=== PATIENT | female | born 1950 | race Caucasian/White ===

== ENCOUNTER → 2017-01-29 | Outpatient (CLI) | payer MEDICARE, BC ==
[~2017-01-29] MED LIST: ATEN25TA PO; COZA50TA PO; HYDR25TA5 PO
[2017-01-29 14:00] LABS: BASOPHIL % 0.5 % (0.0-2.0); EOSINOPHIL # 0.1 TH/MM3 (0-0.4); EOSINOPHIL % 1.5 % (0.0-4.0); HEMATOCRIT 42.5 % (35.0-46.0); HEMO FLAGS DIFF FINAL; LYMPH % 28.6 % (9.0-44.0); LYMPHOCYTE # 2.3 TH/MM3 (1.0-4.8); MEAN CELL VOLUME 88.3 FL (80.0-100.0); MEAN CORPUSCULAR HEMOGLOBIN 30.8 PG (27.0-34.0); MEAN CORPUSCULAR HGB CONC 34.9 % (32.0-36.0); MONO % 6.7 % (0.0-8.0); NEUT % 62.7 % (16.0-70.0); PLATELET COUNT 244 TH/MM3 (150-450); RED BLOOD COUNT 4.81 MIL/MM3 (4.00-5.30); RED CELL DISTRIBUTION WIDTH 12.9 % (11.6-17.2); WHITE BLOOD COUNT 7.9 TH/MM3 (4.0-11.0)
[2017-01-29 14:05] LABS: BLOOD, URINE NEG (NEG); COMMENT (UR) CULT NOT INDICATED; CULTURE IF INDICATED CULT NOT INDICATED; GLUCOSE,URINE NEG (NEG); KETONE, URINE NEG (NEG); MUCUS URINE FEW /lpf (OCC); NITRITE,URINE NEG (NEG); URINE COLOR LIGHT-YELLOW (YELLW/STRAW)
--- NOTE | 2017-01-30 11:49 | EKG ---
Date Performed: 01/29/2017 Time Performed: 13:29:08 PTAGE: 66 years EKG: SINUS BRADYCARDIA INCOMPLETE RIGHT BUNDLE BRANCH BLOCK BORDERLINE ECG NO PREVIOUS TRACING DOCTOR: Florencio Garsia Interpretating Date/Time 01/30/2017 11:43:31
== END ==
LOC: CPRE 12:41
PROVIDERS: ATTEND Obstetrics & Gynecology
DX: Z01.810 Encounter for preprocedural cardiovascular examination (principal); Z01.812 Encounter for preprocedural laboratory examination; D25.9 Leiomyoma of uterus, unspecified; R10.2 Pelvic and perineal pain; R94.31 Abnormal electrocardiogram [ECG] [EKG]
CPT/HCPCS: 36415; 81001; 85025; 93005

== ENCOUNTER 2017-01-31 10:05 | Observation (INO) | payer MEDICARE, BC ==
[~2017-01-31] VITALS: Ht 162.6 cm; Wt 81.1 kg
--- NOTE | 2017-01-31 09:22 | MH ---
cc: TEZ FIGUEROA. DATE OF ADMISSION: 01/31/2017 ADMITTING DIAGNOSIS Pelvic pressure, pelvic pain, uterine fibroids. HISTORY OF PRESENT ILLNESS The patient is a 66-year-old white female, para 2-0-0-2 with an LMP in 1998. She was referred to me on 11/21/[address] Hagan for gynecological evaluation, history of fibroids and pelvic pain and pressure. Her Pap smear was normal. Pelvic ultrasound on 12/01/16 shows multiple fibroids, right ovary was normal, the left could not be seen. There was no free fluid. She is now admitted for hysterectomy. PAST MEDICAL HISTORY Previous surgery, she had a bilateral tubal interruption 1977. She had repair of a right ankle fracture 1995. MEDICATIONS 1. Losartan. 2. Hydrochlorothiazide. 3. Atenolol. 4. Vitamins. ALLERGIES None. TRANSFUSIONS None. OBSTETRICAL HISTORY Vaginal delivery. 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 30+ years. [employer] [place], [place]. FAMILY HISTORY Her family history is noncontributory. PHYSICAL EXAMINATION GENERAL: Well-nourished, well-developed white female. VITAL SIGNS: Vital signs stable. HEENT: Exam is normal. CHEST: Chest is clear. HEART: Regular rate. BREASTS: Breasts are symmetrical. ABDOMEN: Abdomen is benign. PELVIC EXAMINATION: Normal external genitalia and BUS. Vagina is normal. Cervix normal. Uterus is enlarged about 12 to 14 weeks' size. Adnexa nonpalpable. ASSESSMENT As above. PLAN She is now admitted for laparoscopy with planned LASH/BSO, possible EDITH/BSO. While in the office I explained the procedures, the risks, benefits and complications and the patient would like to proceed. MD JACOB Mello/RAMEZ /9:14 PM /9:03 AM
[2017-01-31 11:00] VITALS: BP 187/93; PULSE 50; RESP 18; TEMP 97.8; O2SAT 96
[2017-01-31] MEDS ORDERED: ceFAZolin 2 GM PREMIX 50 ML ONE (11:11)
[2017-01-31] MEDS ORDERED: ACETAMINOPHEN 1000 MG/100 ML VIAL IV ONE (11:12)
[2017-01-31] MEDS ORDERED: INSULIN HUMAN REGULAR 1,000 UNITS/10 ML VIAL SQ PRN (11:15)
[2017-01-31] MEDS ORDERED: LACTATED RINGER'S 1000 ML IV PRN (11:15)
[2017-01-31] MEDS ORDERED: SODIUM CHLORID 0.9% 500 ML IV PRN (11:15)
[2017-01-31] MEDS ORDERED: CHLORHEXIDINE GLUCONATE 2 % 1 PACK (2 CLOTHS) TOPICAL PRN (11:15)
[2017-01-31] MEDS ORDERED: METOPROLOL TARTRATE 25 MG TAB PO PRN (11:15)
[2017-01-31] MEDS ORDERED: POVIDONE IODINE 5% (ANTISEPSIS KIT) 4 APPLICATIONS EACH NARE PRN (11:15)
[2017-01-31] MEDS ORDERED: ACETAMINOPHEN 1000 MG/100 ML VIAL IV SCH (11:30)
[2017-01-31] MEDS ORDERED: ceFAZolin 2 GM PREMIX 50 ML IV SCH (11:30)
[2017-01-31] MEDS: D5-1/2 NS + KCL 20 MEQ INJ 1,000 ML IV SCH ×2 (13:59→22:49)
[2017-01-31] MEDS ORDERED: ONDANSETRON HCL 4 MG/2 ML VIAL IV PRN (14:00)
[2017-01-31] MEDS ORDERED: ONDANSETRON ODT 4 MG TAB PO PRN (14:00)
[2017-01-31] MEDS ORDERED: hydrOXYzine PAMOATE 25 MG CAP PO PRN (14:00)
[2017-01-31] MEDS ORDERED: METOCLOPRAMIDE HCL 10 MG/2 ML VIAL IV PUSH PRN (14:00)
[2017-01-31] MEDS ORDERED: PROMETHAZINE HCL 25 MG TAB PO PRN (14:00)
[2017-01-31] MEDS ORDERED: HYDROmorphone HCL PF 1 MG/ML VIAL IV PRN (14:00)
[2017-01-31] MEDS ORDERED: SODIUM CHLORIDE 0.9% FLUSH 5 ML FLUSH FLUSH PRN (14:00)
[2017-01-31] MEDS ORDERED: ZOLPIDEM TARTRATE 5 MG TAB PO PRN (14:00)
[2017-01-31] MEDS ORDERED: D5-1/2 NS + KCL 20 MEQ INJ 1,000 ML ONE (14:21)
[2017-01-31] MEDS ORDERED: MIDAZOLAM HCL 2 MG/2 ML VIAL ONE (14:32)
[2017-01-31] MEDS ORDERED: fentaNYL CITRATE 250 MCG/5 ML AMP ONE (14:33)
[2017-01-31] MEDS: ACETAMINOPHEN 1000 MG/100 ML VIAL IV SCH ×2 (14:44→22:48)
[2017-01-31] MEDS: KETOROLAC TROMETHAMINE 30 MG/ML (IVP) VIAL IVP SCH ×2 (14:45→20:41)
[2017-01-31] MEDS ORDERED: DO NOT ADM ANY ANTICOAGULANT DRUGS PRN (15:00)
[2017-01-31] MEDS ORDERED: PROPOFOL 200 MG/20 ML AMP IV ONE (15:03)
[2017-01-31] MEDS ORDERED: ePHEDrine/NS 25 MG/5 ML SYR IV ONE (15:03)
[2017-01-31] MEDS ORDERED: KETOROLAC TROMETHAMINE 60 MG/2 ML (IM) VIAL IM ONE (15:03)
[2017-01-31] MEDS ORDERED: ONDANSETRON HCL 4 MG/2 ML VIAL IV PUSH ONE (15:04)
[2017-01-31] MEDS ORDERED: *morphine SULFATE 8 MG/ML PERIprocedure ONLY ONE (15:36)
[2017-01-31 17:05] LABS: HEMATOCRIT 39.4 % (35.0-46.0); REVIEW FLAG FINAL
[2017-01-31 17:30] VITALS: BP 135/67; PULSE 53; RESP 20; TEMP 96.6; O2SAT 97
[2017-01-31] MEDS: DOCUSATE SODIUM 100 MG CAP PO SCH ×2 (18:38→20:41)
[2017-01-31 20:00] VITALS: BP 115/66; PULSE 50; RESP 17; TEMP 96.5; O2SAT 94
[2017-01-31 20:16] VITALS: O2SAT 96
[2017-01-31] MEDS: SODIUM CHLORIDE 0.9% FLUSH 5 ML FLUSH FLUSH SCH (20:41)
[2017-02-01] VITALS: BP 118/69; PULSE 51; RESP 18; TEMP 96.7; O2SAT 95
[2017-02-01] MEDS: KETOROLAC TROMETHAMINE 30 MG/ML (IVP) VIAL IVP SCH ×2 (03:41→08:26)
[2017-02-01 04:00] VITALS: BP 136/73; PULSE 58; RESP 18; TEMP 97.6; O2SAT 96
[2017-02-01] MEDS: ACETAMINOPHEN 1000 MG/100 ML VIAL IV SCH (06:22)
[2017-02-01 07:00] LABS: BASOPHIL % 0.6 % (0.0-2.0); EOSINOPHIL # 0.1 TH/MM3 (0-0.4); EOSINOPHIL % 2.4 % (0.0-4.0); HEMATOCRIT 37.2 % (35.0-46.0); HEMO FLAGS DIFF FINAL; LYMPH % 21.7 % (9.0-44.0); LYMPHOCYTE # 1.3 TH/MM3 (1.0-4.8); MEAN CELL VOLUME 89.1 FL (80.0-100.0); MEAN CORPUSCULAR HEMOGLOBIN 29.6 PG (27.0-34.0); MEAN CORPUSCULAR HGB CONC 33.2 % (32.0-36.0); MONO % 8.3 % (0.0-8.0); PLATELET COUNT 165 TH/MM3 (150-450); RED BLOOD COUNT 4.17 MIL/MM3 (4.00-5.30); RED CELL DISTRIBUTION WIDTH 12.6 % (11.6-17.2)
[2017-02-01 07:32] LABS: BICARBONATE 28.9 MEQ/L (21.0-32.0); POTASSIUM 4.1 MEQ/L (3.5-5.1)
[2017-02-01 08:00] VITALS: BP 142/73; PULSE 53; RESP 16; TEMP 97.1; O2SAT 99
[2017-02-01] MEDS: DOCUSATE SODIUM 100 MG CAP PO SCH (08:26)
[2017-02-01] MEDS: SODIUM CHLORIDE 0.9% FLUSH 5 ML FLUSH FLUSH SCH (08:30)
--- NOTE | 2017-02-01 08:36 | HHI.DCPOC ---
Discharge Care Plan Report Symptoms to Your Doctor -Temperate above 100.5 degrees -Redness, of incision or excessive or foul smelling drainage -Unusual pain or calf pain -Increased vaginal bleeding -Painful or difficulty urinating -Feelings of extreme sadness or anxiety after 2 weeks Goals to Promote Your Health * To prevent worsening of your condition and complications * To maintain your health at the optimal level Directions to Meet Your Goals Take your medications as prescribed Follow your dietary instruction Follow activity as directed Ensure plenty of rest for recovery Drink fluids for hydration Keep your appointments as scheduled Take your immunizations and boosters as scheduled If your symptoms worsen call your PCP, if no PCP go to Urgent Care Center or Emergency Room Smoking is Dangerous to Your Health. Avoid second hand smoke Call the 24-hour crisis hotline for domestic abuse at Tae Masters MD Feb 01, 2017 08:36
[2017-02-01] MEDS ORDERED: PNEUMOCOCCAL POLYVALENT INJ 25 MCG/0.5 ML SYR IM ONE (10:00)
--- NOTE | 2017-02-01 11:42 | MP ---
cc: TEZ FIGUEROA DATE OF SURGERY 01/31/2017 PREOPERATIVE DIAGNOSIS Pelvic pain, pelvic pressure, uterine fibroids. POSTOPERATIVE DIAGNOSIS Pelvic pain, pelvic pressure, uterine fibroids. PROCEDURE LASH, BSO. ANESTHESIA General ET. SURGEON Tez Figueroa MD [employer] ZACHARIAH Galloway ESTIMATED BLOOD LOSS About 50 cc. FLUIDS 1.75 liters. OBJECTIVE FINDINGS Following the induction of adequate general endotracheal anesthesia, the patient was prepped and draped supine on the operating room table in the dorsal lithotomy position in the usual sterile fashion with the bladder being drained via Delgadillo catheterization. The abdomen was opened through a 3-cm curving infraumbilical incision using a knife to cut down through the skin to the fascia. The fascia was opened transversely, stripped from the muscle. The rectus muscle was split in the midline and the peritoneum opened sharply without incident. A GelPort was placed, the 5-mm scope inserted. A 5-port was placed in the left upper quadrant and an aerosol port in the right lower quadrant. Pelvic contents revealed the uterus to be about 12 weeks' size with large, posterior fibroid impinging on the colon. The tubes and ovaries were normal. The cul-de-sacs were clear. Liver edge was normal. Working first on the left, the harmonic scalpel was used to take the left ovarian vessels, the left round ligament, left broad ligament and left side of the bladder flap and the left uterine vessels. Same was done on the right side. The harmonic scalpel was now used to amputate the fundus from the cervix, a pouch inserted and the uterus, tubes and ovaries were extracted intact through the GelPort. Irrigation was now performed. One area of bleeding on the right side of the cervix was controlled with a harmonic scalpel application. Low-pressure test was done; there was no bleeding in the neutral and Trendelenburg positions. The operative site was now coated with Evicel, the GelPort removed. The wound was closed with a running stitch of 2-0 Vicryl for the peritoneum, a running locking 0 Vicryl from each corner to midline and tied for the fascia, running 3-0 Vicryl for the subcu and running subcuticular 3-0 Monocryl for the skin. The scope was now reinserted through the lower sites and inspected the GelPort site which was well closed and intact, no entrapment. The pelvis was inspected, no bleeding. The ureters showed good peristalsis. The scope was removed, the gas allowed to escape, small ports removed and sutured with 3-0 Monocryl. Sterile bandage was applied. All counts were correct and the patient was awakened and taken to the recovery room in good condition. MD JACOB Mello/SSB /2:32 PM /11:28 AM
== END 2017-02-01 11:14 | disposition home or self-care (01) ==
LOC: HSDC 10:05 → EDUNIT# 12:45 → HOCB 17:30
PROVIDERS: ADMIT Obstetrics & Gynecology; ATTEND Obstetrics & Gynecology
DX: D25.0 Submucous leiomyoma of uterus (principal); N83.8 Other noninflammatory disorders of ovary, fallopian tube and broad ligament; I10 Essential (primary) hypertension; Z23 Encounter for immunization
CPT/HCPCS: 00840; 58542; 80048; 85014; 85018; 85025; 86850; 86900; 86901; 88307; 88341; 88342; 90732; G0378; J0131; J0690; J1885; J2250; J2270; J2405; J3010; J3480; J7120; 90471; G0009